=== PATIENT | female | born 1955 | race Caucasian/White ===

== ENCOUNTER → 2017-11-15 | Outpatient (CLI) | payer BC ==
--- NOTE | 2017-11-16 15:23 | US ---
HISTORY: History of prior back mass. Status post hysterectomy. Study: Pelvic ultrasound: Multiplanar ultrasonographic examination of the pelvis was performed Comparison: None Findings: By history the patient is status post hysterectomy. I do not see a well-defined uterus. There is so ft tissue density posterior to the urinary bladder that may represent stool within the rectum. Examination of the adnexa regions reveals no evidence of a mass. Neither ovary identified. There is no evidence of free pelvic fluid. The visualized urinary bladder is normal. IMPRESSION: 1. Soft tissue density posterior to the urinary bladder, most likely stool within the rectum, jett flores, clinical correlation is recommended. 2. I do not identify the uterus or either ovary. This consistent with hysterectomy based on history provided. HISTORY: Abnormal LFTs Study: Abdominal ultrasound: Multiplanar ultrasonographic examination of the abdomen was performed. Comparison: None Findings: Moderate increased echogenicity of the liver is noted felt to be on the basis of moderate fatty infil tration. I see no definite evidence of intrahepatic biliary duct dilatation. The gallbladder has be en surgically removed. The common bile duct measures 6. 5 mm in maximum dimension. The spleen as vi sualized is normal. The pancreas as visualized is normal. The abdominal aorta and inferior vena cav a are not visualized. The kidneys are of normal size, echogenicity and echotexture. No evidence of mass or hydronephrosis is noted. The right kidney measures 11.4 cm in length by 6.4 x 5.3 cm. Left kidney measures 11.6 cm in length by 6.3 x 5.6 cm. IMPRESSION: 1. Moderate fatty infiltration of the liver. 2. The patient is status post cholecystectomy. 3. The abdominal aorta and inferior vena cava cannot be adequately evaluated secondary to bowel gas. 4. Otherwise, negative abdominal ultrasound Reported By:
== END | disposition home or self-care (01) | DRG 392 ==
LOC: RAD 10:19
PROVIDERS: ATTEND Pediatrics Pediatric Endocrinology
DX: R10.84 Generalized abdominal pain (principal); K76.0 Fatty (change of) liver, not elsewhere classified
CPT/HCPCS: 76700; 76856